=== PATIENT | female | born 1965 | race Caucasian/White ===

== ENCOUNTER 2017-08-16 17:24 | Emergency (ER) | payer MEDICAID ==
[~2017-08-16] VITALS: Ht 299.7 cm; Wt 58.5 kg
[~2017-08-16 17:24] MED LIST: AMO500 PO; BIA500 PO; FER300 PO; LAC PO; PRI20 PO; VITC PO
[2017-08-16 17:38] VITALS: Ht 299.7 cm; Wt 58.5 kg
[2017-08-16 18:46] VITALS: BP 152/80
== END 2017-08-16 18:46 | disposition home or self-care (01) ==
LOC: ED 17:24
DX: K64.8 Other hemorrhoids (principal); I10 Essential (primary) hypertension